=== PATIENT | female | born 1950 | race African-American/Black ===

== ENCOUNTER 2022-12-15 08:58 | Inpatient (IN) | payer OTHER ==
[2022-12-13 15:48] VITALS: BMI 32.9
[2022-12-15] MEDS ORDERED: PROPOFOL 20 ML ONE ×8 (12:07→16:03)
[2022-12-15] MEDS ORDERED: MIDAZOLAM HCL 2 MG/2 ML SINGLE DOSE VIAL ONE (12:07)
[2022-12-15] MEDS ORDERED: BUPIVACAINE LIPOSOME/PF (EXPAREL) 266 MG/20 ML VIAL ONE (12:09)
[2022-12-15] MEDS ORDERED: BUPIVACAINE HCL/PF 0.5% (5MG/ML) 10 ML VIAL ONE (12:09)
[2022-12-15] MEDS ORDERED: SODIUM CHLORIDE 0.9% P/F 10 ML VIAL IJ ONE (12:22)
[2022-12-15] MEDS ORDERED: BUPIVACAINE HCL 50 ML ONE (12:38)
[2022-12-15] MEDS ORDERED: VANCOMYCIN 1,000 MG VIAL (RESTRICTED TO ID ONLY) ONE (12:52)
[2022-12-15] MEDS ORDERED: ceFAZolin SODIUM 1 GM VIAL ONE ×2 (12:52→15:52)
[2022-12-15] MEDS ORDERED: ONDANSETRON 4 MG/2 ML VIAL ONE (12:52)
[2022-12-15] MEDS ORDERED: DEXAMETHASONE SOD PHOSPHATE 4 MG/1 ML VIAL ONE (12:52)
[2022-12-15] MEDS ORDERED: TRANEXAMIC ACID 1000 MG/10 ML VIAL ONE ×2 (12:52→15:52)
[2022-12-15] MEDS ORDERED: PHENYLEPHRINE HCL 10 MG/1 ML SINGLE DOSE VIAL ONE (14:05)
[2022-12-15] MEDS ORDERED: MAG HYDROX/AL HYDROX/SIMETH 30 ML UNIT-DOSE CUP PO PRN (16:52)
[2022-12-15] MEDS ORDERED: ONDANSETRON 4 MG/2 ML VIAL IVPUSH PRN ×2 (16:52→17:08)
[2022-12-15] MEDS ORDERED: MAGNESIUM HYDROX 2400MG/30ML ORAL SUSPENSION 30 ML CUP PO PRN (16:52)
[2022-12-15] MEDS ORDERED: LACTATED RINGERS SOLUTION 1,000 ML IV SCH (17:00)
[2022-12-15] MEDS ORDERED: oxyCODONE HCL 5 MG TABLET PO PRN (17:08)
[2022-12-15] MEDS ORDERED: PROMETHAZINE HCL 25 MG/1 ML VIAL IVPB PRN (17:08)
[2022-12-15] MEDS ORDERED: KETOROLAC TROMETHAMINE 30 MG/1 ML VIAL ONE (17:21)
[2022-12-15] MEDS ORDERED: ACETAMINOPHEN INJECTION 100 ML IVPB ONE (17:21)
[2022-12-15] MEDS: KETOROLAC TROMETHAMINE 30 MG/1 ML VIAL IVPUSH SCH ×3 (17:24→23:08)
[2022-12-15] MEDS: ACETAMINOPHEN 1000 MG/100 ML BAG IVPB ONE ×2 (17:27→22:42)
[2022-12-15] MEDS: oxyCODONE HCL 5 MG TABLET PO PRN (19:56)
[2022-12-15] MEDS ORDERED: CEFAZOLIN SODIUM 2 GM in DEXTROSE 5%-WATER 100 ML IVPB SCH (21:00)
[2022-12-15] MEDS ORDERED: ASPIRIN 325 MG TABLET PO SCH (22:00)
[2022-12-15] MEDS: CEFAZOLIN SODIUM 2 GM in DEXTROSE 5%-WATER 100 ML IVPB SCH (22:00)
[2022-12-15] MEDS ORDERED: CELECOXIB 200 MG CAPSULE PO SCH (22:00)
[2022-12-15] MEDS ORDERED: PATIENT'S OWN MEDICATION (NON-FORMULARY) (Levalbuterol Tartrate [Levalbuterol Tartrate Hfa IH SCH (22:00)
[2022-12-15] MEDS: ASPIRIN 81 MG CHEWABLE TABLETS PO SCH (22:01)
[2022-12-15] MEDS: CELECOXIB 100 MG CAPSULE PO SCH (22:02)
[2022-12-15] MEDS: LOSARTAN POTASSIUM 50 MG TABLET PO SCH (22:03)
[2022-12-15] MEDS: oxyCODONE HCL 10 MG SUSTAINED ACTING TABLET PO SCH (22:04)
[2022-12-15] MEDS: SENNOSIDES/DOCUSATE COMBO (SENNA PLUS) TABLET (UD) PO SCH (22:07)
[2022-12-15] MEDS: VERAPAMIL HCL 120 MG E.R. TABLET PO SCH (22:17)
[2022-12-15] MEDS: LACTATED RINGERS SOLUTION 1,000 ML IV SCH (22:24)
[2022-12-15] MEDS: ACETAMINOPHEN 500 MG TABLET (FP) PO SCH ×2 (22:42→23:07)
[2022-12-16] MEDS: CEFAZOLIN SODIUM 2 GM in DEXTROSE 5%-WATER 100 ML IVPB SCH ×2 (02:28→08:35)
[2022-12-16] MEDS: ACETAMINOPHEN 500 MG TABLET (FP) PO SCH ×3 (05:58→17:17)
[2022-12-16] MEDS ORDERED: ALBUTEROL SO4 HFA INHALER IH PRN (08:13)
[2022-12-16 08:48] LABS: ALBUMIN 3.3 g/dl (3.4-5.0); BILIRUBIN,TOTAL 0.6 mg/dl (0.2-1); CALCIUM 8.7 mg/dl (8.5-10); CREATININE 0.9 mg/dl (0.55-1.3); TOT PROT 5.9 g/dl (6.4-8.2)
[2022-12-16] MEDS: ASPIRIN 81 MG CHEWABLE TABLETS PO SCH ×2 (09:29→21:17)
[2022-12-16] MEDS: PANTOPRAZOLE 40 MG TABLET PO SCH (09:29)
[2022-12-16] MEDS: CELECOXIB 100 MG CAPSULE PO SCH ×2 (09:29→21:17)
[2022-12-16] MEDS: SENNOSIDES/DOCUSATE COMBO (SENNA PLUS) TABLET (UD) PO SCH ×2 (09:29→21:17)
[2022-12-16 09:43] LABS: HEMATOCRIT 36.9 % (32.4-45.2); HEMOGLOBIN 12.1 GM/dL (10.7-15.3); MCH 28.6 pg (25.7-33.7); MCHC 32.7 g/dl (32.0-36.0); MEAN CELL VOLUME 87.4 fl (80-96); MEAN PLT VOLUME 8.4 fl (7.5-11.1); PLATELET COUNT 228 10^3/uL (134-434); RBC 4.22 M/mm3 (3.60-5.2); RDW 13.7 % (11.6-15.6); WHITE BLOOD COUNT 17.1 K/mm3 (4.0-10.0)
[2022-12-16 10:33] LABS: ANISOCYTOSIS 0; HELMET CELLS 0; HOWELL-JOLLY BODIES 0; MACROCYTOSIS 0; OVALOCYTE 0; ROULEAU 0; SICKELED CELLS 0; TARGET CELLS 0; TEAR DROP CELLS 0; TOXIC GRANULATION 0
[2022-12-16] MEDS: oxyCODONE HCL 5 MG TABLET PO PRN (11:53)
[2022-12-16] MEDS: oxyCODONE HCL 10 MG SUSTAINED ACTING TABLET PO SCH ×2 (12:34→21:17)
[2022-12-16] MEDS: VERAPAMIL HCL 120 MG E.R. TABLET PO SCH (21:17)
[2022-12-16] MEDS: LOSARTAN POTASSIUM 50 MG TABLET PO SCH (21:17)
[2022-12-17] MEDS: ACETAMINOPHEN 500 MG TABLET (FP) PO SCH ×3 (05:15→11:17)
[2022-12-17] MEDS: CELECOXIB 100 MG CAPSULE PO SCH (09:05)
[2022-12-17] MEDS: SENNOSIDES/DOCUSATE COMBO (SENNA PLUS) TABLET (UD) PO SCH (09:05)
[2022-12-17] MEDS: PANTOPRAZOLE 40 MG TABLET PO SCH (09:05)
[2022-12-17] MEDS: LACTATED RINGERS SOLUTION 1,000 ML IV SCH (09:05)
[2022-12-17] MEDS: ASPIRIN 81 MG CHEWABLE TABLETS PO SCH (09:05)
[2022-12-17] MEDS: oxyCODONE HCL 10 MG SUSTAINED ACTING TABLET PO SCH (09:14)
[2022-12-17 09:20] VITALS: BP 122/51; PULSE 67; RESP 17; TEMP 98.4
== END 2022-12-17 12:29 | disposition home or self-care (01) | DRG 468 ==
LOC: FM/S 08:58
PROVIDERS: ADMIT Orthopaedic Surgery Orthopaedic Surgery of the Spine; ATTEND Orthopaedic Surgery Orthopaedic Surgery of the Spine
PROC: 0SRC0J9 Replacement of Right Knee Joint with Synthetic Substitute, Cemented, Open Approach (ICD-10-PCS; 2022-12-15)
PROC: 0SBC0ZZ Excision of Right Knee Joint, Open Approach (ICD-10-PCS; 2022-12-15)
PROC: 0SPC0JZ Removal of Synthetic Substitute from Right Knee Joint, Open Approach (ICD-10-PCS; principal; 2022-12-15 13:21)
DX: T84.032A Mechanical loosening of internal right knee prosthetic joint, initial encounter (principal); I10 Essential (primary) hypertension; E78.5 Hyperlipidemia, unspecified; E66.9 Obesity, unspecified; Z68.33 Body mass index [BMI] 33.0-33.9, adult; J45.909 Unspecified asthma, uncomplicated; Y83.8 Other surgical procedures as the cause of abnormal reaction of the patient, or of later complication, without mention of misadventure at the time of the procedure
CPT/HCPCS: 36415; 73560-TC-RT-FY; 80053; 85025; 88304-TC; 88307-TC; 88311-TC; 88331-TC; 94760; 97010-GP; 97116-GP; 97162-GP; C1713; C1776